=== PATIENT | male | born 1975 | race Caucasian/White ===

== ENCOUNTER 2021-10-05 08:55 | Inpatient (IN) | payer BC ==
--- OUTSIDE RECORDS SUMMARY | 2021-10-05 08:57 | XMS REPORT | Continuity of Care Document ---
:1975 Author Organization [facility] t Address [address] [place] [address] Care Team Providers Name Role Phone Jg Brenner MD Primary Care Physician Jg Brenner MD Attending Clinician JG BRENNER Attending Clinician Unavailable MARGARETTORI Attending Clinician Unavailable UNKNOWN Attending Clinician Unavailable Payers Payer Name Policy Type Policy Number Effective Date Expiration Date S bhargavi [facility] [id number] 2018 00:00:00 Problems Condition Condition Condition Status Onset Resolution Last Treating Co mments Source Name Details Category Date Date Treatment Clinician Date Other Other Disease Active Laura hyperlipid hyperlipid 4-22 Se ybold emia emia 00:00: 00 Vitamin D Vitamin D Disease Active Ky sey deficiency deficiency 4-22 Se ybold 00:00: 00 Hypothyroi Hypothyroi Disease Active K elsey dism dism 4-22 Seybold 00:00: 00 Essential Essential Disease Active Ky sey hypertensi hypertensi 4-22 Se ybold on on 00:00: 00 Allergies, Adverse Reactions, Alerts Allergy Allergy Status Severity Reaction(s) Onset Inactive Treating Comm ents Source Name Type Date Date Clinician NO KNOWN Drug Active [facility] ALLERGIE Class ity of [facility] Social History Social Habit Start Date Stop Date Quantity Comments Source Alcohol intake 2021-08-01 2021-08-01 Ex-drinker Laura Jaimesy bold 00:00:00 00:00:00 (finding) Tobacco use and 2020-11-23 2020-11-23 Smokeless tobacco Ke leah Seybold exposure 00:00:00 00:00:00 non-user Sex Ass[birth year] M Laura Jaimes ybold 00:00:00 00:00:00 Smoking Status Start Date Stop Date Source Never smoked tobacco Laura Seyb old Medications Ordered Filled Start Stop Current Ordering Indication Dosage Frequency Signature Comments Components Source Medication Medication Date Date Medication? Clinician (SIG) Name Name methylPREDN 2020-08 Yes [id number] 1{rupert} Take 1 rupert Laura ISolone 4 by mouth Seybol d MG oral 00:00: See Admin Tablet 00 Instructio Therapy ns Use as Pack directed Benzonatate 2020-08 Yes [id number] 200mg [id number] Take 1 Laura 200 MG oral [id number] capsule Seybold Capsule 00:00: 3D (200 mg 00 total) by mouth 3 times daily as needed for cough Azithromyci 2020-08- Yes [id number] Take 2 Laura n 250 MG - tablets by Seyb old oral Tablet 00:00: 05:59 mouth on 00 :00 day 1 then 1 tablet by mouth daily for 4 days thereafter . Lisinopril Yes [id number] 20mg Take 1 K elsey 20 MG oral 9-17 tablet (20 Sey bold Tablet 00:00: mg total) 00 by mouth daily Lisinopril Yes [id number] 20mg Take 1 K elsey 20 MG oral 9-17 tablet (20 Sey bold Tablet 00:00: mg total) 00 by mouth daily Lisinopril 2020- No 20mg Take 1 Josie ey 20 MG oral 04-10 09-17 tablet (20 Se ybold Tablet 00:00: 00:00 mg total) 00 :00 by mouth daily Levothyroxi Yes [id number] TAKE 1 Laura ne Sodium 7-30 TABLET BY Seybo ld 75 MCG oral 00:00: MOUTH Tablet 00 EVERY DAY Atorvastati 0 Yes [id number] TAKE 1 Laura n Calcium 7-30 TABLET BY Seybo ld 10 MG oral 00:00: MOUTH Tablet 00 EVERYDAY AT BEDTIME Levothyroxi 2020-0 Yes [id number] TAKE 1 Laura ne Sodium 7-30 TABLET BY Seybo ld 75 MCG oral 00:00: MOUTH Tablet 00 EVERY DAY Atorvastati 0 Yes [id number] TAKE 1 Laura n Calcium 7-30 TABLET BY Seybo ld 10 MG oral 00:00: MOUTH Tablet 00 EVERYDAY AT BEDTIME Levothyroxi 0 2- No [id number] 75ug Take 1 Laura ne Sodium 7-30 07-26 tablet (75 Sey bold 75 MCG oral 00:00: 04:59 mcg total) Tablet 00 :00 by mouth daily Levothyroxi 0 2- No [id number] 75ug Take 1 Laura ne Sodium 7-30 07-26 tablet (75 Sey bold 75 MCG oral 00:00: 04:59 mcg total) Tablet 00 :00 by mouth daily Coenzyme 2020-0 Yes [id number] Take 1 Ky sey Q10 4-22 tablet Seybold (CoQ-10) 00:00: daily 100 MG oral 00 Capsule Coenzyme 2020-0 Yes [id number] Take 1 Ky sey Q10 4-22 tablet Seybold (CoQ-10) 00:00: daily 100 MG oral 00 Capsule Immunizations Ordered Immunization Filled Immunization Date Status Commen Source Name Name Covid-19 Vaccine 2020-10-18 Completed Laura barrera (Qlibri) 00:00:00 Covid-19 Vaccine 2020-10-18 Completed Laura barrera (Qlibri) 00:00:00 Influenza Virus 2016-07-15 Completed Laura reynolds Vaccine, age 6 00:00:00 months and up Tdap- (Boostrix, 2016-07-15 Completed Laura barrera Adacel) 00:00:00 Influenza Virus 2016-07-15 Completed Laura marianoold Vaccine, age 6 00:00:00 months and up Tdap- (Boostrix, 2016-07-15 Completed Laura barrera Adacel) 00:00:00 MMR- Measles, Mumps, 2015-05-09 Completed Josie ey Seybold Rubella 00:00:00 Outside Tb Screening 2015-05-09 Completed Josie ey Seybold 00:00:00 MMR- Measles, Mumps, 2015-05-09 Completed Josie ey Seybold Rubella 00:00:00 Outside Tb Screening 2015-05-09 Completed Josie ey Seybold 00:00:00 Vital Signs Vital Name Observation Time Observation Value Comments Source Systolic blood pressure 2021-04-20 17:08:00 112 mm[Hg] Laura Seybold Diastolic blood 2021-04-20 17:08:00 78 mm[Hg] Kelse y Seybold pressure Heart rate 2021-04-20 17:08:00 75 /min Laura reyesboalisson Body temperature 2021-04-20 17:08:00 36.44 Latasha Josie ey Seybold Respiratory rate 2021-04-20 17:08:00 16 /min Josie amy Seybold Body height 2021-04-20 17:08:00 177.8 cm Laura reyesboalisson Body weight 2021-04-20 17:08:00 116.574 kg Laura reyesboalisson BMI 2021-04-20 17:08:00 36.88 kg/m2 Laura reyesboalisson Procedures This patient has no known procedures. Encounters Start End Encounter Admission Attending Care Care Encounter Source Date/Time Date/Time Type Type Clinicians Facility Department ID 2021-08-01 2021-08-01 Telemedici Humberto Brenner [id number] Laura 16:45:00 16:45:00 ne Lennie Keita [id number] Se gail Crossyi [id number] 2021-04-20 2021-04-20 Office Humberto Brenner [id number] Laura 09:18:20 09:48:20 Visit Lennie Keita [id number] Se gail Hindsogyi [id number] 2021-04-20 2021-04-20 Outpatient LAURA BRENNER [id number] Laura 00:00:00 00:00:00 LENNIE martinez 2021-04-10 2021-04-10 Outpatient LAURA BRENNER [id number] Laura 00:00:00 00:00:00 LENNIE martinez 2021-04-08 2021-04-08 Outpatient TRACIELAURALANCE LAURA VANEGAS [id number] Laura 00:00:00 00:00:00 MD Pierre CAMPBELL 2019-10-17 2019-10-17 Outpatient R [facility] [id number] Univers 14:45:00 14:45:00 [id number] [facility] 2019-10-17 2019-10-17 Outpatient R UNKNOWN, [facility] [id number] Univers 14:45:00 14:45:00 ATTENDING [facility] Results This patient has no known results.
--- NOTE | 2021-10-05 09:53 | ER ---
Nurse's Notes [facility] Name: Alfonso Seo Jr Age: 46 yrs Sex: Male : 1975 Arrival Date: 10/05/2021 Time: 08:56 Bed 13 Private MD: Sung Mccauley Diagnosis: Unstable angina;Obesity, unspecified;Essential (primary) hypertension Presentation: 10/05 09:08 Chief complaint: Patient states: Chest pain/pressure that started on Friday. Went to [facility] ER on Friday and was given Imdur. Saw Cardiology today and sent here for further evaluation and possible heart cath on Friday. Coronavirus screen: Vaccine status: Client denies travel out of the [place] in the last 14 days. Ebola Screen: Patient negative for fever greater than or equal to 101.5 degrees Fahrenheit, and additional compatible Ebola Virus Disease symptoms. Initial Sepsis Screen: Does the patient meet any 2 criteria? No. Patient's initial sepsis screen is negative. Does the patient have a suspected source of infection? No. Patient's initial sepsis screen is negative. Risk Assessment: Do you want to hurt yourself or someone else? Patient reports no desire to harm self or others. Onset of symptoms was September 29, 2021. 09:08 Method Of Arrival: Ambulatory 09:08 Acuity: ALEXANDRE 3 ww Triage Assessment: 09:10 General: Appears in no apparent distress. Behavior is cooperative. Pain: Complains of ww pain in anterior aspect of left upper chest, xiphoid area, mid-sternal area, left nipple and left breast. Neuro: Level of Consciousness is awake, alert, obeys commands, Oriented to person, place, time, situation, Chemical Dependency Nurse are equal bilaterally Moves all extremities. Gait is steady, Speech is normal. Cardiovascular: Capillary refill < 3 seconds Patient's skin is warm and dry. Rhythm is regular Chest pain quality is pressure, is located in substernal area. Respiratory: Airway is patent Respiratory effort is even, unlabored, Respiratory pattern is regular, symmetrical. GI: No signs and/or symptoms were reported involving the gastrointestinal system. : No signs and/or symptoms were reported regarding the genitourinary system. Derm: Skin is intact, is healthy with good turgor, Skin is pink, warm \\T\\ dry. Historical: - Allergies: 09:10 No Known Allergies; ww - Home Meds: 09:10 atorvastatin 10 mg oral tab 1 tab once daily [Active]; lisinopril 20 mg Oral tab 1 tab ww once daily [Active]; levothyroxine 75 mcg cap 1 cap once daily [Active]; - PMHx: 09:10 Hypertensive disorder; Hypothyroidism; Diabetes mellitus; Hypercholesterolemia; ww - PSHx: 09:10 gastric bypass; neck fusion c5-c6; ww - Immunization history:: Adult Immunizations up to date. - Social history:: Smoking status: Patient denies any tobacco usage or history of. - Family history:: not pertinent. Screenin:13 Abuse screen: Denies threats or abuse. Denies injuries from another. Nutritional ww screening: No deficits noted. Tuberculosis screening: No symptoms or risk factors identified. Fall Risk None identified. Assessment: 09:15 General: Appears in no apparent distress. Behavior is calm, cooperative, appropriate cb5 for age. Pain: Complains of pain in chest and mid-sternal area Pain does not radiate. Neuro: No deficits noted. Level of Consciousness is awake, alert, obeys commands, Oriented to person, place, time, situation, Appropriate for age. Cardiovascular: Reports chest pain. Respiratory: No deficits noted. GI: No deficits noted. : No deficits noted. EENT: No deficits noted. Derm: No deficits noted. Musculoskeletal: No deficits noted. 10:17 Reassessment: contacted lab dept. they are recollecting lab specimens from patient. cb5 Vital Signs: 09:08 BP 141 / 85; Pulse 68; Resp 18; Temp 97.3; Pulse Ox 99% on R/A; Weight 112.49 kg; ww Height 5 ft. 9 in. (175.26 cm); 09:08 Body Mass Index 36.62 (112.49 kg, 175.26 cm) ww ED Course: 08:56 Patient arrived in ED. as 08:57 Sung Mccauley MD is Private Physician. as 08:59 Wilman Weiss MD is Attending Physician. cecilio 08:59 [facility] 09:10 Triage completed. ww 09:10 Arm band placed on right wrist. ww 09:13 Patient has correct armband on for positive identification. Bed in low position. Call ww light in reach. Side rails up X 1. surgeon/president on. Pulse ox on. NIBP on. 09:13 EKG done. ww 09:28 Inserted saline lock: 20 gauge in left antecubital area, using aseptic technique. Blood ww collected. 09:36 Raquel Johnson, RN is Primary Nurse. cb5 09:52 Thong Webber MD is Hospitalizing Provider. cecilio 10:21 SARS-COV-2 RT PCR (Document "Date of Onset" if Symptomatic) Sent. cb5 10:29 XRAY Chest (1 view) In Process Unspecified. EDMS Administered Medications: 09:08 CANCELLED (Duplicate Order): Lovenox (enoxaparin) 1 mg/kg Sub-Q once cecilio 10:07 CANCELLED (Duplicate Order): Aspirin Chewable Tablet 324 mg PO once; 81 mg tablets x 4 cecilio 10:07 CANCELLED (Duplicate Order): Lopressor (metoprolol TARTRATE) 50 mg PO once cecilio 10:21 Drug: Lopressor (metoprolol TARTRATE)) 25 mg Route: PO; cb5 10:22 Drug: Pepcid (famotidine) 20 mg Route: IVP; Site: right antecubital; cb5 10:23 Drug: Aspirin Chewable Tablet 324 mg Route: PO; cb5 12:55 Not Given (Patient Refused): Lovenox (enoxaparin) 100 mg Sub-Q once cb5 Outcome: 09:53 Decision to Hospitalize by Provider. cecilio 14:43 Patient left the ED. iw Signatures: Dispatcher [employer] EDMS Wilman Weiss MD MD cha Mickail, Joel, PA PA jmm Martinez, Amelia as Williams, Irene, Brittney Hoyt RN, RN RN ww Boman, Colleen, GEORGE RN cb5 Corrections: (The following items were deleted from the chart) 12:55 10:21 Lovenox (enoxaparin) 100 mg Sub-Q in abdomen cb5 cb5
--- NOTE | 2021-10-05 09:53 | EDPHYS ---
Physician Documentation [facility] Name: Alfonso Seo Jr Age: 46 yrs Sex: Male : 1975 Arrival Date: 10/05/2021 Time: 08:56 Bed 13 Private MD: Sung Mccauley ED Physician Wilman Weiss HPI: 10/05 09:46 This 46 yrs old Male presents to ER via Ambulatory with complaints of Chest cecilio Pain. 09:46 The patient or guardian reports chest pain that is located primarily in the anterior cecilio chest wall, bilaterally. Onset: 3 day(s) ago. The pain does not radiate. Associated signs and symptoms: The patient has no apparent associated signs or symptoms. The chest pain is described as a pressure. Duration: The patient or guardian reports multiple episodes, that have now resolved. Modifying factors: The symptoms are alleviated by application of supplemental oxygen, remaining still, rest, the symptoms are aggravated by exertion. Severity of pain: At its worst the pain was moderate in the emergency department the pain has resolved and did so earlier today. The patient has experienced similar episodes in the past, several times. Historical: - Allergies: 09:10 No Known Allergies; ww - Home Meds: 09:10 atorvastatin 10 mg oral tab 1 tab once daily [Active]; lisinopril 20 mg Oral tab 1 tab ww once daily [Active]; levothyroxine 75 mcg cap 1 cap once daily [Active]; - PMHx: 09:10 Hypertensive disorder; Hypothyroidism; Diabetes mellitus; Hypercholesterolemia; ww - PSHx: 09:10 gastric bypass; neck fusion c5-c6; ww - Immunization history:: Adult Immunizations up to date. - Social history:: Smoking status: Patient denies any tobacco usage or history of. - Family history:: not pertinent. ROS: 09:46 Constitutional: Negative for fever, chills, and weight loss, Eyes: Negative for injury, cecilio pain, redness, and discharge, ENT: Negative for injury, pain, and discharge, Neck: Negative for injury, pain, and swelling, Respiratory: Negative for shortness of breath, cough, wheezing, and pleuritic chest pain, Abdomen/GI: Negative for abdominal pain, nausea, vomiting, diarrhea, and constipation, Back: Negative for injury and pain, : Negative for injury, bleeding, discharge, and swelling, MS/Extremity: Negative for injury and deformity, Skin: Negative for injury, rash, and discoloration, Neuro: Negative for headache, weakness, numbness, tingling, and seizure, Psych: Negative for depression, anxiety, suicide ideation, homicidal ideation, and hallucinations, Allergy/Immunology: Negative for hives, rash, and allergies, Endocrine: Negative for neck swelling, polydipsia, polyuria, polyphagia, and marked weight changes, Hematologic/Lymphatic: Negative for swollen nodes, abnormal bleeding, and unusual bruising. 09:46 Cardiovascular: Positive for chest pain, of the chest. Exam: 09:46 Constitutional: This is a well developed, well nourished patient who is awake, alert, cecilio and in no acute distress. Head/Face: Normocephalic, atraumatic. Eyes: Pupils equal round and reactive to light, extra-ocular motions intact. Lids and lashes normal. Conjunctiva and sclera are non-icteric and not injected. Cornea within normal limits. Periorbital areas with no swelling, redness, or edema. ENT: Nares patent. No nasal discharge, no septal abnormalities noted. Tympanic membranes are normal and external auditory canals are clear. Oropharynx with no redness, swelling, or masses, exudates, or evidence of obstruction, uvula midline. Mucous membranes moist. Neck: Trachea midline, no thyromegaly or masses palpated, and no cervical lymphadenopathy. Supple, full range of motion without nuchal rigidity, or vertebral point tenderness. No Meningismus. Chest/axilla: Normal chest wall appearance and motion. Nontender with no deformity. No lesions are appreciated. Cardiovascular: Regular rate and rhythm with a normal S1 and S2. No gallops, murmurs, or rubs. Normal PMI, no JVD. No pulse deficits. Respiratory: Lungs have equal breath sounds bilaterally, clear to auscultation and percussion. No rales, rhonchi or wheezes noted. No increased work of breathing, no retractions or nasal flaring. Abdomen/GI: Soft, non-tender, with normal bowel sounds. No distension or tympany. No guarding or rebound. No evidence of tenderness throughout. Back: No spinal tenderness. No costovertebral tenderness. Full range of motion. Skin: Warm, dry with normal turgor. Normal color with no rashes, no lesions, and no evidence of cellulitis. MS/ Extremity: Pulses equal, no cyanosis. Neurovascular intact. Full, normal range of motion. Neuro: Awake and alert, GCS 15, oriented to person, place, time, and situation. Cranial nerves II-XII grossly intact. Motor strength 5/5 in all extremities. Sensory grossly intact. Cerebellar exam normal. Normal gait. Psych: Awake, alert, with orientation to person, place and time. Behavior, mood, and affect are within normal limits. 09:46 Musculoskeletal/extremity: DVT Exam: No signs of deep vein thrombosis. no pain, no swelling, no tenderness, negative Homans' sign noted on exam, no appreciated bluish discoloration, no erythema, no increased warmth. 09:54 ECG was reviewed by the Attending Physician. [facility] Vital Signs: 09:08 BP 141 / 85; Pulse 68; Resp 18; Temp 97.3; Pulse Ox 99% on R/A; Weight 112.49 kg; ww Height 5 ft. 9 in. (175.26 cm); 09:08 Body Mass Index 36.62 (112.49 kg, 175.26 cm) ww MDM: 08:59 Patient medically screened. cecilio 09:48 Differential diagnosis: abnormal EKG, acute myocardial infarction, coronary artery cecilio disease chest wall pain, congestive heart failure Cholelithiasis hiatal hernia, pancreatitis, stable angina, unstable angina. HEART Score: History: Slightly Suspicious (0), ECG: Normal (0), Age: < or = 45 years (0), Risk Factors: > or = 3 Risk factors for atherosclerotic disease (2), [Hypercholesterolemia] [Hypertension] [DM] [+ Family HX] [Obesity] Troponin: < or = 1 x Normal Limit (0). The patient was given aspirin in the Emergency Department. The patient's deep vein thrombosis risk score was calculated as follows: Total Score: 0. This patient was found to be at low risk for a deep vein thrombosis by using the Well's assessment criteria. The patient's pulmonary embolism risk score was calculated as follows: Total Score: 0-2 points. This patient was found to be at low risk for a pulmonary embolism by using the Well's assessment criteria. EKATERINA Risk Score: 1 - Three or more CAD risk factors, 1 - ASA use in past 7 days, TOTAL SCORE = 2. Data reviewed: vital signs, nurses notes, lab test result(s), EKG, radiologic studies, plain films. Data interpreted: phototypesetting equipment monitor: rate is 68 beats/min, rhythm is regular, Pulse oximetry: on room air is 99 %. Counseling: I had a detailed discussion with the patient and/or guardian regarding: the historical points, exam findings, and any diagnostic results supporting the discharge/admit diagnosis, the presence of at least one elevated blood pressure reading (>120/80) during this emergency department visit, lab results, radiology results, the need for further work-up and treatment in the hospital. 10/05 09:01 Order name: Basic Metabolic Panel [facility] 10/05 09:01 Order name: CBC with Diff; Complete Time: 10:46 [facility] 10/05 09:01 Order name: LFT's [facility] 10/05 09:01 Order name: Magnesium [facility] 10/05 09:01 Order name: NT PRO-BNP [facility] 10/05 09:01 Order name: PT-INR [facility] 10/05 09:01 Order name: Troponin HS [facility] 10/05 09:01 Order name: XRAY Chest (1 view); Complete Time: 11:01 cecilio 10/05 09:01 Order name: Lipase [facility] 10/05 09:51 Order name: SARS-COV-2 RT PCR (Document "Date of Onset" if Symptomatic); Complete Time: eb 11:45 10/05 09:01 Order name: EKG; Complete Time: 09:02 10/05 09:01 Order name: Cardiac monitoring; Complete Time: 09:27 10/05 09:01 Order name: EKG - Nurse/Tech; Complete Time: 09:27 10/05 09:01 Order name: IV Saline Lock; Complete Time: 09:28 10/05 09:01 Order name: Labs collected and sent; Complete Time: :28 10/05 09:01 Order name: O2 Per Protocol; Complete Time: :28 10/05 09:01 Order name: O2 Sat Monitoring; Complete Time: :28 10/05 09:01 Order name: Urine Dipstick-Ancillary (obtain specimen) 10/05 10:17 Order name: Labs - recollect needed: recollect hemolyzed sample 10/05 12:25 Order name: CONS Physician Consult EDMS EC:54 Rate is 64 beats/min. Rhythm is regular. QRS Thompson is Normal. OR interval is normal. QRS cecilio interval is normal. QT interval is normal. No Q waves. T waves are Normal. No ST changes noted. Clinical impression: NSR w/ Non-specific ST/T Changes and No evidence of ischemia. Interpreted by me. Reviewed by me. Administered Medications: 09:08 CANCELLED (Duplicate Order): Lovenox (enoxaparin) 1 mg/kg Sub-Q once cecilio 10: CANCELLED (Duplicate Order): Aspirin Chewable Tablet 324 mg PO once; 81 mg tablets x 4 cecilio 10: CANCELLED (Duplicate Order): Lopressor (metoprolol TARTRATE) 50 mg PO once cecilio 10:21 Drug: Lopressor (metoprolol TARTRATE)) 25 mg Route: PO; cb5 10:22 Drug: Pepcid (famotidine) 20 mg Route: IVP; Site: right antecubital; cb5 10:23 Drug: Aspirin Chewable Tablet 324 mg Route: PO; cb5 12:55 Not Given (Patient Refused): Lovenox (enoxaparin) 100 mg Sub-Q once cb5 Disposition Summary: 10/05/21 09:53 Hospitalization Ordered Hospitalization Status: Observation cecilio Provider: Thong Webber cha Location: Telemetry/MedSurg (observation) cecilio Condition: Fair cecilio Problem: new cecilio Symptoms: have improved cecilio Bed/Room Type: Standard cecilio Room Assignment: cecilio Diagnosis - Unstable angina cecilio - Obesity, unspecified cecilio - Essential (primary) hypertension cecilio Forms: - Medication Reconciliation Form cecilio - SBAR form cecilio Signatures: Dispatcher [employer] EDWilman Huff MD MD cha Botello, Elizabeth eb Johnson, Evan, PA PA ej Wood, Whitney RN Raquel Stringer, RN RN cb5 Corrections: (The following items were deleted from the chart) 09:08 09:01 Lovenox (enoxaparin) 1 mg/kg Sub-Q once ordered. cecilio cecilio 10: 09:01 Aspirin Chewable Tablet 324 mg PO once; 81 mg tablets x 4 ordered. cecilio cecilio 10: 09:01 Lopressor (metoprolol TARTRATE) 50 mg PO once ordered. cecilio cecilio
[2021-10-05] MEDS ORDERED: METOPROLOL TAR 50 MG TAB ONE (10:08)
[2021-10-05] MEDS ORDERED: ASPIRIN 81 MG CHEWABLE TABLET ONE (10:08)
[2021-10-05] MEDS ORDERED: FAMOTIDINE 20 MG/2 ML VIAL IV ONE (10:09)
[2021-10-05] MEDS ORDERED: ENOXAPARIN 100 MG/ML SYR SQ ONE (10:09)
[2021-10-05] MEDS ORDERED: METOPROLOL TAR 25 MG TAB ONE (10:09)
[2021-10-05 10:11] LABS: Absolute Lymphocytes (CBC) 1.6 K/uL (0.7-4.9); Hematocrit 41.1 % (39.6-49.0); Lymphocytes % 24.5 % (15.3-44.8); MPV 9.1 fL (7.6-11.3); RBC Red Blood Cell Count 4.92 M/uL (4.33-5.43)
--- NOTE | 2021-10-05 10:56 | RAD REPORT ---
EXAM DESCRIPTION: RAD - Chest Single View - 10/05/2021 10:29 am CLINICAL HISTORY: CHEST PAIN COMPARISON: No comparisons FINDINGS: Lines: None. Lungs: No evidence of edema or pneumonia. Pleural: No significant pleural effusions or pneumothorax. Cardiac: The heart size is within normal limits. Bones: No acute fractures. Other: IMPRESSION: No acute cardiopulmonary disease.
[2021-10-05 11:56] LABS: Protime INR 1.13
[2021-10-05 12:19] LABS: ALT/SGPT 30 U/L (12-78); AST/SGOT 15 U/L (15-37); Albumin 3.6 g/dL (3.4-5.0); Alkaline Phosphatase 76 U/L (45-117); BUN Blood Urea Nitrogen 13 mg/dL (7-18); Bicarbonate 29 mmol/L (21-32); Bilirubin Total 0.4 mg/dL (0.2-1.0); Glucose Level 127 mg/dL (74-106); Lipase 121 U/L (73-393); Magnesium 2.1 mg/dL (1.8-2.4); NT PRO-BNP 11 pg/mL (<125); Potassium 3.9 mmol/L (3.5-5.1); Protein, Total 6.9 g/dL (6.4-8.2); Sodium Level 139 mmol/L (136-145)
[2021-10-05 12:25] LABS: Bilirubin Direct < 0.1 mg/dL (0-0.2)
--- NOTE | 2021-10-05 12:40 | P.HP ---
Certification for Inpatient Patient admitted to: Inpatient With expected LOS: >2 Midnights Patient will require the following post-hospital care: None Practitioner: I am a practitioner with admitting privileges, knowledge of patient current condition, hospital course, and medical plan of care. Services: Services provided to patient in accordance with Admission requirements found in Title 42 Section 412.3 of the Code of Federal Regulations Patient History Date of Service: 10/05/21 Primary Care Provider: Jordin Reason for admission: chest pain History of Present Illness: Mr. 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 He reports 7/10 sharp left sided chest pain beginning at rest lasting for a few minutes at a time beginning since Friday. He says when the pain resolves, he still has constant chest discomfort. He reports labored breathing with the pain. Denies nausea, vomiting, vision changes, palpitations. He received aspirin, lovenox, and metoprolol in the ED. Currently pain free. Plan to go to the medical laboratory assistant on Friday. - Past Medical/Surgical History Diabetic: Yes -: HTN -: hypothyroidism -: DM -: HLD -: neck surgery -: gastric bypass -: knee scope - Family History Father -: Diabetes Mother -: Heart disease, Kidney disease Sister -: Heart disease, Hypertension - Social History Smoking Status: Never smoker Alcohol use: Yes CD- Drugs: No Caffeine use: Yes Place of Residence: Home Review of Systems General: Unremarkable Eyes: Unremarkable ENT: Unremarkable Respiratory: Shortness of Breath Cardiovascular: Chest Pain Gastrointestinal: Unremarkable Genitourinary: Unremarkable Musculoskeletal: Unremarkable Integumentary: Unremarkable Neurological: Unremarkable Lymphatics: Unremarkable Physical Examination - Physical Exam General: Alert, In no apparent distress, Obese HEENT: Atraumatic, PERRLA, Mucous membr. moist/pink, EOMI, Sclerae nonicteric Neck: Supple, 2+ carotid pulse no bruit, No LAD, Without JVD or thyroid abnormality Respiratory: Clear to auscultation bilaterally, Normal air movement Cardiovascular: Regular rate/rhythm, Normal S1 S2 Gastrointestinal: Normal bowel sounds, No tenderness Musculoskeletal: No tenderness Integumentary: No rashes Neurological: Normal gait, Normal speech, Normal strength at 5/5 x4 extr, Normal tone, Normal affect Lymphatics: No axilla or inguinal lymphadenopathy - Studies Laboratory Data (last 24 hrs) 10/05/21 11:37: PT 13.0 H, INR 1.13 10/05/21 11:28: Sodium 139, Potassium 3.9, BUN 13, Creatinine 0.98, Glucose 127 H, Magnesium 2.1, Total Bilirubin 0.4, AST 15, ALT 30, Alkaline Phosphatase 76, Lipase 121 10/05/21 09:26: WBC 6.50, Hgb 14.3, Hct 41.1, Plt Count 223 Assessment and Plan - Problems (Diagnosis) (1) HTN (hypertension) Current Visit: Yes Status: Chronic Qualifiers: Hypertension type: primary hypertension Qualified Code(s): I10 - Essential (primary) hypertension (2) Hypothyroid Current Visit: Yes Status: Chronic Qualifiers: Hypothyroidism type: unspecified Qualified Code(s): E03.9 - Hypothyroidism, unspecified (3) T2DM (type 2 diabetes mellitus) Current Visit: Yes Status: Chronic Qualifiers: 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 use: without halfway use Diabetes mellitus complication status: without complication Qualified Code(s): E11.9 - Type 2 diabetes mellitus without complications (4) HLD (hyperlipidemia) Current Visit: Yes Status: Chronic Qualifiers: Hyperlipidemia type: unspecified Qualified Code(s): E78.5 - Hyperlipidemia, unspecified (5) Chest pain Current Visit: Yes Status: Acute Qualifiers: Chest pain type: unspecified Qualified Code(s): R07.9 - Chest pain, unspecified - Plan cardiology consulted on tele, trend troponins, repeat ekg daily aspirin, metoprolol, statin, prn morphine and nitroglycerin full dose lovenox continue home lisinopril, levothyroxine, and imdur lipid and thyroid levels pending hydralazine PRN for BP spikes Discharge Plan: Home Plan to discharge in: 72 Hours - Advance Directives Does patient have a Living Will: No Does patient have a Durable POA for Healthcare: No - Code Status/Comfort Care Code Status Assessed: Yes (full code ) Critical Care: No Time Spent Managing Pts Care (In Minutes): 70
[2021-10-05] MEDS ORDERED: HEPA 1000U/500MLS 1,000 UNIT/500 ML BAG IV ONE (13:41)
[2021-10-05] MEDS ORDERED: FENTANYL CITR 100 MCG/2 ML ONE (13:45)
[2021-10-05] MEDS ORDERED: MIDAZOLAM HCL 2 MG/2 ML INJ ONE ×2 (13:45→14:20)
[2021-10-05] MEDS ORDERED: ATROPINE SULF 1 MG/10 ML SYR IV ONE (13:45)
[2021-10-05] MEDS ORDERED: NITROGLYCERIN/D5W 0 MG/0 ML BTL IV ONE (13:46)
[2021-10-05] MEDS ORDERED: NITROGLYCERIN 100 MCG/ML SYR (for cath lab use only) IV ONE (13:46)
[2021-10-05] MEDS ORDERED: NA CHLORIDE 0.9% 0 ML ONE (13:46)
[2021-10-05] MEDS ORDERED: NA CHLORIDE 0.9% 500 ML ONE (13:49)
[2021-10-05] MEDS ORDERED: LIDOCAINE 1% 20 ML MDV ONE (14:29)
[2021-10-05 14:48] VITALS: TEMP 97.3
[2021-10-05 16:41] VITALS: BP 117/73; O2SAT 99
--- NOTE | 2021-10-05 19:43 | CON ---
Date of Consultation: 10/05/2021 Reason For Consultation: Unstable angina. History Of Present Illness: Mr. Seo is a 46-year-old white male with a history of hypertension, cholesterol, family history of heart disease and hypothyroidism, came in to see Dr. Mccauley today in the office with substernal chest pressure radiating to the left arm, diaphoresis, shortness of breath . Dr. Mccauley was concerned that he may have coronary artery disease and unstable angina, and he was sent to the emergency room where he had a normal EKG, normal x-ray, normal troponin, but continued to have pain. We decided to take him to the laboratory immunologist for urgent catheterization. Past Medical History: As stated above. Allergies: NONE. Review of Systems: Negative. Social History: Negative for tobacco. Family History: Positive for heart disease in his mother in her 50s. Medications: Include lisinopril, , and Lipitor. Physical Examination: Vital Signs: Stable, afebrile. HEENT: Negative. Neck: Supple, with no bruit. Chest: Clear. Cardiac: Revealed a regular rhythm and rate. No murmurs, gallops, or rubs. Abdomen: Benign. Extremities: Revealed no clubbing, cyanosis, or edema. Diagnostic Data: As stated earlier. Impression And Plan: This is a gentleman with multiple disease risk factors including family history , hypertension, dyslipidemia. Symptoms are very suggestive of coronary artery disease. We will take him to the laboratory immunologist today to define his coronary anatomy. Patient understands the risk and the bene fits of the procedure and he agreed to proceed. Further decisions will be made after the catheteriza tion is done. Meanwhile, continue his present regimen. LINDSAY/ELKIN Voice ID: [id number] Report ID: [id number]
--- NOTE | 2021-10-06 00:57 | OP ---
Date of Procedure: 10/05/2021 Surgeon: Henrry Skinner MD Reason For Admission: Unstable angina. Indication: The patient was brought to the civil laboratory technician after being admitted from Dr. Mccauley's office fo r unstable angina. Procedure In Detail: He was brought to the civil laboratory technician, prepped and draped in the routine sterile fashi on. Given Versed and fentanyl for sedation. A 6-[place] sheath introduced in the right common femora l artery successfully. Angiography there was normal. [employer] was used to close the case. A [employer] catheter left and right were used to cannulate the left main and right main respectively. The pat ient was found to have perfectly normal coronaries. There were no complications. Blood Loss: 5 mL. Postoperative Diagnosis: Chest pain, normal coronaries. Plan: To continue his medical regimen at home. He will be discharged 2 hours after bedrest and we w ill see him in the office in 2 weeks. Anesthesia: Total conscious sedation was 30 minutes. LINDSAY/ANNABELL Voice ID: [id number] Report ID: [id number]
== END 2021-10-05 16:58 | disposition home or self-care (01) | DRG 287 ==
LOC: ER 08:55 → ERHOLD 12:25
PROVIDERS: ADMIT Hospitalist; ATTEND Hospitalist
PROC: 4A023N6 Measurement of Cardiac Sampling and Pressure, Right Heart, Percutaneous Approach (ICD-10-PCS; principal; 2021-10-05)
PROC: B2111ZZ Fluoroscopy of Multiple Coronary Arteries using Low Osmolar Contrast (ICD-10-PCS; 2021-10-05)
DX: I25.110 Atherosclerotic heart disease of native coronary artery with unstable angina pectoris (principal); E11.9 Type 2 diabetes mellitus without complications; E03.9 Hypothyroidism, unspecified; E66.9 Obesity, unspecified; I10 Essential (primary) hypertension; E78.5 Hyperlipidemia, unspecified; Z68.36 Body mass index [BMI] 36.0-36.9, adult; Z79.899 Other long term (current) drug therapy; Z98.84 Bariatric surgery status; Z79.890 Hormone replacement therapy; Z20.822 Contact with and (suspected) exposure to COVID-19
CPT/HCPCS: 36415; 71045; 80048; 80076; 83690; 83735; 83880; 84484; 85025; 85610; 93005; 93454; 96374; 99284; C1893; J0583; J1644; J1650; J2250; J3010; J7040; U0003